=== PATIENT | female | born 1970 | race Two or more races ===

== ENCOUNTER 2016-10-16 08:18 | Day surgery (SDC) | payer OTHER ==
[2016-10-13 11:35] VITALS: BMI 28.8
[2016-10-16] MEDS ORDERED: MIDAZOLAM HCL 2 MG/2 ML SINGLE DOSE VIAL ONE (10:19)
[2016-10-16] MEDS ORDERED: CLINDAMYCIN PHOSPHATE 600 MG/4 ML VIAL ONE (10:24)
[2016-10-16] MEDS ORDERED: PROPOFOL 20 ML ONE ×2 (10:25)
[2016-10-16] MEDS ORDERED: BUPIVACAINE HCL/EPINEPHRINE/PF 30 ML VIAL IJ ONE (10:25)
[2016-10-16] MEDS ORDERED: BUPIVACAINE HCL/PF 2.5 MG/ML - 30 ML VIAL IJ ONE (10:30)
[2016-10-16] MEDS ORDERED: LIDOCAINE HCL 1%, 10 MG/ML (20ML VIAL) ONE (10:31)
[2016-10-16] MEDS ORDERED: DEXAMETHASONE SOD PHOSPHATE 4 MG/1 ML VIAL ONE (11:05)
[2016-10-16] MEDS ORDERED: KETOROLAC TROMETHAMINE 30 MG/1 ML VIAL ONE (11:05)
[2016-10-16] MEDS ORDERED: ONDANSETRON 4 MG/2 ML VIAL ONE ×2 (11:06→12:24)
[2016-10-16] MEDS ORDERED: BUPIVACAINE HCL/PF 0.25% (2.5MG/ML) 10 ML VIAL IJ ONE (11:21)
[2016-10-16] MEDS ORDERED: LIDOCAINE HCL 1%, 10 MG/ML (50 mL VIAL) IJ ONE (11:22)
[2016-10-16] MEDS ORDERED: ONDANSETRON 4 MG/2 ML VIAL IVPUSH PRN (11:40)
[2016-10-16] MEDS ORDERED: oxyCODONE HCL 5 MG TABLET PO PRN ×2 (11:40)
[2016-10-16] MEDS ORDERED: LACTATED RINGERS SOLUTION 1,000 ML IV SCH (11:45)
[2016-10-16 13:17] VITALS: TEMP 98.1
[2016-10-16 13:42] VITALS: BP 139/82; PULSE 51
--- NOTE | 2016-10-19 00:40 | OP ---
DATE OF OPERATION: 10/16/2016 SURGEON: Mirella Becker MD [employer]: [facility] PREOPERATIVE DIAGNOSIS: 1. Left elbow epicondylitis with bone spur. 2. Left elbow epicondylitis with bone spur. POSTOPERATIVE DIAGNOSIS: 1. Left elbow epicondylitis with bone spur. 2. Left elbow epicondylitis with bone spur. PROCEDURE: Open release lateral epicondyle with removal of tendon, removal of bone spur, and reattachment of tendon. FINDINGS: Thickened scar tissue of the attachment of the lateral epicondyle and bone spur. PROCEDURE: Informed consent was obtained. Patient was taken to the operating room where the left upper extremity was prepped and draped in the sterile fashion. Tourniquet was placed on the upper arm and inflated to 200 mmHg. Incision was made along the lateral epicondyle, approximately 5 cm. The supinator extensor tendon was identified at its attachment. Inverted U-incision was made and the central one-third of the tendon was lifted. Scar tissue was removed including bone spur was removed from the bone, creating a bleeding surface. This was sent to pathology. Wound was irrigated with copious amounts of irrigation. Tendon was reattached in a slightly lengthened position using 0 Vicryl in [id number] interrupted sutures. [place] grid debridement was done across the tendon to promote healing. Wound was irrigated again and closed with 2-0 Vicryl and 3-0 nylon. Sterile dressing was placed. Patient was transferred to recovery without complication. MIRELLA BECKER M.D. [id number]
--- NOTE | 2016-10-22 16:44 | PATH ---
Surgical Pathology Report Patient Name: RUTHIE GIBSON [facility]. Rec. #: [id number] /Age/Gender: 1970 (Age: 46) / F Account: [id number] Location: [facility] AMBULATORY Taken: 10/16/2016 Received: 10/16/2016 Reported: 10/22/2016 Physicians: Andres Lomax M.D. Specimen(s) Received LEFT ELBOW SCAR AND TISSUE Clinical History Lateral epicondylitis left side Final Diagnosis SCAR TISSUE, LEFT ELBOW, RELEASE: FIBROCOLLAGENOUS TISSUE, BONE AND CARTILAGE. Electronically Signed Radha Laguerre M.D. Gross Description Received in formalin labeled "left elbow scar tissue," is a 1.0 x 0.5 x 0.3 cm aggregate of murray-yellow fragments of soft tissue and possible bone. The specimen is entirely submitted in one cassette, following decalcification. /10/16/2016 saudi10/16/2016
== END 2016-10-16 13:45 | disposition home or self-care (01) ==
LOC: FASU 08:18
PROVIDERS: ATTEND Orthopaedic Surgery
PROC: 0PBG0ZZ Excision of Left Humeral Shaft, Open Approach (ICD-10-PCS; principal; 2016-10-16 10:54)
DX: M77.12 Lateral epicondylitis, left elbow (principal); M25.722 Osteophyte, left elbow
CPT/HCPCS: 84703; 88304-TC; 94760